=== PATIENT | female | born 1940 | race Caucasian/White ===

== ENCOUNTER 2021-03-11 09:45 | Inpatient (IN) | payer MEDICARE ==
[~2021-03-11] VITALS: Ht 170.2 cm; Wt 63.5 kg
--- NOTE | ~2021-03-11 | PROC ---
[address] [address] PROCEDURE REPORT Name: COLLINS PLATA Room: [address] IN .R.#: [id number] Admission: 03/11/21 Attend Phys: Lisa Hammond MD Discharge: 03/11/21 Date of : 36 Report #: [id number] THIS REPORT FOR: cc: Ana Romero MD, Elizabeth MD [facility],Medical Records Staff ~ For GI report, please see the Provation report in Perceptive 7 content. By: [id number] Records Staff [facility] /BRYAN
[2021-03-11 09:46] VITALS: BP 124/73
[2021-03-11] MEDS ORDERED: SIMVASTATIN80 MG PO (09:51)
[2021-03-11 10:26] LABS: ABSOLUTE EOSINOPHILS 0.1 thou/uL (0.0-0.7); ABSOLUTE LYMPHOCYTES 0.2 thou/uL (0.8-5.3); ABSOLUTE NEUTROPHILS 5.7 thou/uL (1.6-8.1); BASOPHILS 0.1 %; EOSINOPHILS 0.9 %; HEMATOCRIT 31.6 % (37.0-47.0); HEMOGLOBIN 10.7 gm/dL (12.0-15.0); MCH 29.2 pg (26.0-34.0); MCHC 33.8 g/dL (28.0-37.0); MCV 86.4 fL (80.0-100.0); MONOCYTES 0.8 %; MPV 7.6 fl. (7.2-11.1); NUCLEATED RBCS 0 /100WBC; PLATELET COUNT* 176 thou/uL (150-400); POLYS 94.2 %; RBC 3.66 mil/uL (4.20-5.00); RDW-CV 15.8 % (10.5-14.5); WBC 6.1 thou/uL (4.0-11.0)
[2021-03-11 10:34] LABS: CREATININE 1.5 mg/dL (0.6-1.3); POTASSIUM 3.4 mmol/L (3.5-5.1)
[2021-03-11 10:45] LABS: ALBUMIN 2.6 g/dL (3.4-5.0); TOTAL BILIRUBIN 4.9 mg/dL (<0.1-1.0)
[2021-03-11 12:42] LABS: URINE BLOOD 1+ (Negative); URINE CLARITY SL CLOUDY; URINE COLOR DARK YELLOW; URINE GLUCOSE-RANDOM NEGATIVE (Negative); URINE KETONES NEGATIVE (Negative); URINE LEUKOCYTES-REFLEX 1+ (Negative); URINE NITRITE-REFLEX NEGATIVE (Negative); URINE PROTEIN 1+ (Negative); URINE UROBILINOGEN 0.2 E.U./dl (0.2-1.0)
[2021-03-11 12:43] LABS: ICTOTEST (BILI CONFIRMATORY) Positive (Negative); URINE BILIRUBIN 2+ (Negative)
[2021-03-11 12:55] LABS: BACTERIA-REFLEX >30 Many /HPF (None Seen); MUCUS 4-6 Moderate strn/LPF (None Seen); SQUAMOUS 0-3 Few /LPF (0-3); URINE RBC 3-10 Few /HPF (0-2); URINE WBC-REFLEX 6-15 Few /HPF (0-5)
[2021-03-11 12:56] LABS: CASTS None Seen /LPF (None Seen); HYALINE CASTS 0-3 Few /LPF (None Seen)
[2021-03-11 12:57] LABS: AMORPHOUS URATES Moderate /LPF (None Seen); CRYSTALS None Seen /LPF (None Seen); FINE GRANULAR CASTS 0-3 Few /LPF (None Seen)
[2021-03-11 14:49] VITALS: BP 94/48
[2021-03-11 21:01] VITALS: BP 126/68
[2021-03-11 21:06] VITALS: BP 146/68
[2021-03-11 21:37] VITALS: BP 63/31
[2021-03-11 22:16] VITALS: BP 81/63
--- NOTE | 2021-03-12 15:16 | EKG ---
[place] [address] ELECTROCARDIOGRAM REPORT Name: SHERLYNCOLLINS L Room: [address] IN [facility]#: [id number] Admission: 03/11/21 Attend Phys: Lisa Hammond, Discharge: 03/11/21 Date of : 36 Date of Service: 03/11/21 0949 Report #: [id number] THIS REPORT FOR: //name// [facility] ED Test Date: 2021-03-11 Test Time: 09:49:06 Pat Name: CLOLINS PLATA Department: Room: [facility] Gender: F Graduate Rn: DARRIN : 1940 Requested By: Stu Haile Order Number: [id number] MD: Vladimir Joseph Measurements Intervals [place] Rate: 102 P: 74 VT: 153 QRS: -2 QRSD: 109 T: 33 QT: 371 QTc: 484 Interpretive Statements Sinus tachycardia Low voltage, precordial leads Nonspecific T wave flattening Compared to ECG 12/05/2006 08:56:55 Low QRS voltage now present Sinus rhythm no longer present Poor R-wave progression no longer present Electronically Signed On 03-12-2021 15:15:53 BANQUET COORDINATOR by Vladimir Joseph [email or web address] <ELECTRONICALLY SIGNED> By: Vladimir Joseph MD, FACC 03/12/21 1515 0949 0949 Vladimir Joseph MD, FAC /EPI
== END 2021-03-11 22:48 | DRG 871 ==
LOC: M.ERS 09:45 → M.ICU 12:27 → M.TBA-ER 12:27 → M.ICU 20:58
PROVIDERS: Family Medicine; ADMIT Internal Medicine; ATTEND Internal Medicine
PROC: 5A12012 Performance of Cardiac Output, Single, Manual (ICD-10-PCS; principal; 2021-03-11)
PROC: 0BH17EZ Insertion of Endotracheal Airway into Trachea, Via Natural or Artificial Opening (ICD-10-PCS; principal; 2021-03-11)
PROC: 0F798DZ Dilation of Common Bile Duct with Intraluminal Device, Via Natural or Artificial Opening Endoscopic (ICD-10-PCS; principal; 2021-03-11)
DX: A41.9 Sepsis, unspecified organism (principal); J96.01 Acute respiratory failure with hypoxia; N17.9 Acute kidney failure, unspecified; K80.42 Calculus of bile duct with acute cholecystitis without obstruction; N39.0 Urinary tract infection, site not specified; E89.0 Postprocedural hypothyroidism; B96.89 Other specified bacterial agents as the cause of diseases classified elsewhere; I95.9 Hypotension, unspecified; Z20.822 Contact with and (suspected) exposure to COVID-19; E78.5 Hyperlipidemia, unspecified; Z79.82 Long term (current) use of aspirin; Z79.899 Other long term (current) drug therapy; I46.9 Cardiac arrest, cause unspecified